=== PATIENT | male | born 1970 ===

== ENCOUNTER → 2019-02-07 | Outpatient (CLI) | payer OTHER ==
[2019-02-07 14:43] LABS: PLATELET COUNT, AUTOMATED 267 K/uL (150-450)
[2019-02-07 15:39] LABS: LDL CHOLESTEROL 87 mg/dl
== END ==
LOC: EDBD → LAB 14:20
PROVIDERS: ATTEND Internal Medicine
DX: Z00.00 Encounter for general adult medical examination without abnormal findings (principal); Z87.442 Personal history of urinary calculi
CPT/HCPCS: 36415; 81001; 82040; 82247; 82306; 82310; 82374; 82435; 82465; 82565; 82947; 83718; 84075; 84132; 84155; 84295; 84443; 84450; 84460; 84478; 84520; 85025